=== PATIENT | male | born 1985 | race African-American/Black ===

== ENCOUNTER → 2020-11-23 | Outpatient (REF) | payer OTHER ==
[2020-11-23 14:29] LABS: SEMEN APPEARANCE OPAQUE (OPAQUE); SEMEN VISCOSITY LIQUID (LIQUID); SEMEN VOLUME 2.1 ml (2.0-5.0); WBC CONCENTRATION <=1 M/ml (<=1 M/ml)
[2020-11-23 14:30] LABS: SPERM CONCENTRATION 99.6 M/ml (>=15.0)
== END ==
LOC: M LAB REF 14:21
PROVIDERS: ATTEND Obstetrics & Gynecology
DX: Z31.41 Encounter for fertility testing (principal)

== ENCOUNTER 2021-07-31 01:44 | Emergency (ER) | payer OTHER ==
[~2021-07-31] VITALS: Ht 170.2 cm; Wt 102.3 kg
[2021-07-31 01:45] VITALS: BP 141/93
[2021-07-31] MEDS ORDERED: VENTAER INH (05:39)
[2021-07-31] MEDS ORDERED: BENZ200C70 PO (05:39)
== END 2021-07-31 06:10 | disposition home or self-care (01) ==
LOC: M ED 01:44
DX: U07.1 COVID-19 (principal)